=== PATIENT | female | born 1940 | race Caucasian/White ===

== ENCOUNTER 2021-02-21 15:01 | Observation (INO) | payer MEDICARE ==
[~2021-02-21] VITALS: Ht 160 cm; Wt 75.0 kg
[~2021-02-21 15:01] MED LIST: AGGRENOX 200/251 CAP PO; CELEBREX100 M1 PO; DOXYCYCL HYC100 MG PO; LIPITOR20 M1 PO; LOTENSIN20 M1 PO; TOPROL XL25 M1 PO
--- NOTE | 2021-02-21 15:05 | NUR ---
PT ESCORTED TO ROOM FOR EVAL OF SOB. REFERRAL BY DR HAMLIN OFFICE
[2021-02-21 15:47] LABS: HEMATOCRIT 35.8 % (37.0-47.0); HEMOGLOBIN 12.1 g/dl (12.0-16.0); IMMATURE GRANULOCYTES 0.2 % (0.0-5.0); MEAN CORPUSCULAR HGB 28.5 pG CALC (26.0-32.0); MEAN CORPUSCULAR HGB CONC 33.8 g/dL CAL (32.0-36.0); NEUT# 9.8 thou/uL (2.00-7.15); RED BLOOD COUNT 4.24 mill/uL (4.20-5.60); RED CELL DISTRI WIDTH 15.8 % (11.5-15.5)
[2021-02-21 15:50] LABS: MEAN CELL VOLUME 84.4 fL CALC (80.0-100.0)
[2021-02-21 16:00] LABS: ALBUMIN 4.1 g/dL (3.2-5.0); ALKALINE PHOSPHATASE 108 u/l (38-126); BILIRUBIN, TOTAL 0.4 mg/dL (0.0-1.4); CARBON DIOXIDE 30 mmol/l (22-30); CREATININE 1.2 mg/dL (0.5-1.0); GFR 43 ML/MIN (>=60 (CALC)); GFR FOR AFR.AMER. 52 ML/MIN (>=60 (CALC)); POTASSIUM 3.5 mmol/l (3.5-5.1); SGOT/AST 31 u/l (9-36)
[2021-02-21 16:01] LABS: ANION GAP 12 (6-22 (CALC)); BUN 27 mg/dL (8-23); BUN/CREATININE RATIO 23 (12-20 (CALC)); CHLORIDE 89 mmol/l (95-108); SODIUM 127 mmol/l (137-146)
--- NOTE | 2021-02-21 19:00 | NUR ---
PT AWARE OF PLAN OF CARE; STATES NO FURTHER ASSISTANCE AT THIS TIME
--- NOTE | 2021-02-21 19:37 | NUR ---
REMOVED INFILTRATED IV LINE IN RIGHT AC. PATIENT WASN'T C/O PAIN. MINIMAL SWELLING AT SITE. NEW LINE STARTED LFA.
--- NOTE | 2021-02-21 19:58 | NUR ---
NURSE TO CALL BACK FOR REPORT
--- NOTE | 2021-02-21 20:10 | NUR ---
Admission Note Report Given to: RN RM 272 Transported by: Wheelchair X Stretcher Transported with: X Nurse Transporter X Patent IV O2 X Line Patrolman Location: ICU X MS2
--- NOTE | 2021-02-21 20:18 | NUR ---
PT ARRIVED TO MS2 VIA STRETCHER ACCOMPANIED BY ER NURSE, PT ALERT AND ORIENTED X3, AMBULATED WITH STEADY GAIT TO BED, ORIENTED PT TO ROOM AND CALL LIGHT, DISCUSSED POC, IV TO LFA INITATED IV FLUIDS, PT HAS A SEVERE TRUSS DESIGNER COUGH, MD NOTIFIED AND ROBITUSSIN ORDERED. NO EDEMA, VERY DRY SKIN NOTED TO BLE, REFUSED TEDS. 02 2L NC PLACED AT BEDSIDE FOR PRN USE. NON SKID SOCKS APPLIED. ADMISSION ASSESSMENT COMPLETED, PT VOICES NO NEEDS OR COMPLAINTS AT THIS TIME, CALL LIGHT IN REACH,CONTINUE TO MONITOR.
[2021-02-21 20:20] VITALS: BP 158/79
[2021-02-22 00:09] VITALS: BP 123/58
--- NOTE | 2021-02-22 01:09 | NUR ---
PT RESTING IN BED WITH EYES CLOSED, NO SIGNS OF DISTRESS NOTED, RESP EVEN AND UNLABORED. CALL LIGHT IN REACH,CONTINUE TO MONITOR.
[2021-02-22 04:42] VITALS: BP 132/65
[2021-02-22 05:33] LABS: HEMATOCRIT 31.6 % (37.0-47.0); HEMOGLOBIN 10.9 g/dl (12.0-16.0); MEAN CELL VOLUME 84.5 fL CALC (80.0-100.0); MEAN CORPUSCULAR HGB 29.1 pG CALC (26.0-32.0); MEAN CORPUSCULAR HGB CONC 34.5 g/dL CAL (32.0-36.0); RED BLOOD COUNT 3.74 mill/uL (4.20-5.60); RED CELL DISTRI WIDTH 15.8 % (11.5-15.5)
--- NOTE | 2021-02-22 05:43 | NUR ---
PT RESTING IN BED, NO SIGNS OF DISTRESS NOTED, RESP EVEN AND UNLABORED. PT VOICES NO NEEDS OR COMPLAINTS, MEDICATED PER MAR, CALL LIGHT IN REACH,CONTINUE TO MONITOR.
[2021-02-22 05:44] LABS: ANION GAP 11 (6-22 (CALC)); BUN 28 mg/dL (8-23); BUN/CREATININE RATIO 31 (12-20 (CALC)); CARBON DIOXIDE 25 mmol/l (22-30); CHLORIDE 96 mmol/l (95-108); CREATININE 0.9 mg/dL (0.5-1.0); GFR 60 ML/MIN (>=60 (CALC)); GFR FOR AFR.AMER. > 60 ML/MIN (>=60 (CALC)); MAGNESIUM 1.5 mg/dL (1.6-2.3); POTASSIUM 3.9 mmol/l (3.5-5.1); SODIUM 129 mmol/l (137-146)
[2021-02-22 07:23] VITALS: BP 167/72
--- NOTE | 2021-02-22 08:35 | NUR ---
PT AWAKE, ALERT, ORIENTED X 3. LUNGS WITH WHEEZES HEARD THROUGHOUT, 2 LPM NC. PT ABLE TO EAT BREAKFAST WITH SET UP ASSIST. NAD.
[2021-02-22 11:43] VITALS: BP 156/84
--- NOTE | 2021-02-22 12:13 | NUR ---
PT SEEN BY DR MARTIN, THEN 6 MINUTE WALK TEST DONE BY ORAL MEDRANO. PT'S ARRIVES TO BEDSIDE.
[2021-02-22] MEDS ORDERED: PREDNISONE20 MG PO (12:38)
[2021-02-22] MEDS ORDERED: ZITHROMAX250 MG PO (12:39)
[2021-02-22] MEDS ORDERED: VENTOLIN HFA108 MCG IN (12:39)
[2021-02-22] MEDS ORDERED: TESSALON PERLE100 MG PO (12:40)
--- NOTE | 2021-02-22 14:01 | NUR ---
PT VERBALIZED UNDERSTANDING OF DC INSTRUCTIONS, WAITS FOR HOME OXYGEN TO BE DELIVERED TO HOSPITAL. PT'S HAS BEEN AT BEDSIDE, SUPPORTIVE.
== END 2021-02-22 15:30 | disposition home health service (06) ==
LOC: ED 15:01 → ED-I 17:00 → ED 17:41 → MS2 17:42
PROVIDERS: Family Medicine; ADMIT Hospitalist; ATTEND Hospitalist
DX: J20.8 Acute bronchitis due to other specified organisms (principal); E87.1 Hypo-osmolality and hyponatremia; N17.9 Acute kidney failure, unspecified; E83.42 Hypomagnesemia; R09.02 Hypoxemia; I11.0 Hypertensive heart disease with heart failure; I50.9 Heart failure, unspecified; E78.5 Hyperlipidemia, unspecified; Z20.822 Contact with and (suspected) exposure to COVID-19
CPT/HCPCS: G0378; J3475

== ENCOUNTER 2021-03-01 16:13 | Observation (INO) | payer MEDICARE ==
[~2021-03-01] VITALS: Ht 160 cm; Wt 71.7 kg
[~2021-03-01 16:13] MED LIST changes: +PREDNISONE20 MG PO; +TESSALON PERLE100 MG PO; +VENTOLIN HFA108 MCG IN; +ZITHROMAX250 MG PO
--- NOTE | 2021-03-01 16:45 | NUR ---
PT ESCORTED TO ROOM 6 FOR EVALUATION VIA WHEELCHAIR
[2021-03-01 17:28] LABS: HEMATOCRIT 34.5 % (37.0-47.0); HEMOGLOBIN 11.5 g/dl (12.0-16.0); IMMATURE GRANULOCYTES 0.5 % (0.0-5.0); MEAN CELL VOLUME 84.8 fL CALC (80.0-100.0); MEAN CORPUSCULAR HGB 28.3 pG CALC (26.0-32.0); MEAN CORPUSCULAR HGB CONC 33.3 g/dL CAL (32.0-36.0); NEUT# 8.76 thou/uL (2.00-7.15); RED BLOOD COUNT 4.07 mill/uL (4.20-5.60); RED CELL DISTRI WIDTH 15.5 % (11.5-15.5)
[2021-03-01 17:42] LABS: ALBUMIN 3.5 g/dL (3.2-5.0); ALKALINE PHOSPHATASE 92 u/l (38-126); ANION GAP 15 (6-22 (CALC)); BILIRUBIN, TOTAL 0.5 mg/dL (0.0-1.4); BUN 16 mg/dL (8-23); BUN/CREATININE RATIO 22 (12-20 (CALC)); CARBON DIOXIDE 24 mmol/l (22-30); CHLORIDE 90 mmol/l (95-108); CREATININE 0.7 mg/dL (0.5-1.0); GFR > 60 ML/MIN (>=60 (CALC)); GFR FOR AFR.AMER. > 60 ML/MIN (>=60 (CALC)); LIPASE 208 u/l (23-300); POTASSIUM 3.6 mmol/l (3.5-5.1); SGOT/AST 21 u/l (9-36); SODIUM 126 mmol/l (137-146); TOTAL PROTEIN 6.6 g/dL (6.3-8.2)
[2021-03-01 17:49] LABS: MAGNESIUM 0.9 mg/dL (1.6-2.3)
--- NOTE | 2021-03-01 20:16 | NUR ---
REPORT GIVEN TO ANDREY.
[2021-03-01 20:30] VITALS: BP 157/72
--- NOTE | 2021-03-01 20:30 | NUR ---
PT ARRIVED TO THE FLOOR VIA STRETCHER ACCOMPAINED BY ER STAFF. PT ALERT AND ORIENTED X4. AMBULATORY FROM STRETCHER TO BED WITH STEADY GAIT, PT STATES SHE HAS WALKER AT HOME BUT DOESN'T USE IT. SKIN INTACT. PT DENIES ANY PAIN OR DISCOMFORT. IV SITE APPEARS HEALTHY. IV FLUIDS INFUSING WITHOUT DIFFICULTY. IMMIGRATION INVESTIGATOR IN PLACE. PT ORIENTED TO ROOM AND CALL LIGHT SYSTEM. DISCUSSED POC AND SAFETY PRECAUTIONS. PT VERBALIZED UNDERSTANDING. CALL LIGHT WITHIN REACH. WILL CONTINUE TO MONITOR.
[2021-03-01 21:21] LABS: URINE BLOOD DIPSTICK TRACE-INTACT (NEGATIVE); URINE COLOR YELLOW; URINE GLUCOSE - DIPSTICK NEGATIVE (NEGATIVE); URINE KETONE 40 mg/dL (NEGATIVE); URINE PH 6.5 (4.5-8.0); URINE PROTEIN - DIPSTICK TRACE mg/dL (NEG-TRACE); URINE UROBILINOGEN - DIPSTICK 0.2 E.U./dL (0.2)
[2021-03-01 21:22] LABS: URINE BILIRUBIN - DIPSTICK NEGATIVE (NEGATIVE); URINE LEUK ESTERASE MODERATE (NEGATIVE); URINE NITRITE - DIPSTICK NEGATIVE (Negative)
[2021-03-01 21:26] LABS: URINE WBC 20-50 WBC/hpf (0-5)
[2021-03-01 21:27] LABS: URINE BACTERIA MODERATE hpf; URINE SQUAMOUS EPITHELIAL CELL MODERATE EPI/hpf (0-FEW)
[2021-03-02] VITALS: BP 125/61
--- NOTE | 2021-03-02 00:01 | NUR ---
PT RESTING IN BED WITH EYES CLOSED. NO APPARENT DISTRESS NOTED. RESPIRATIONS EVEN AND UNLABORED. PT WAKES EASILY. CHANNEL LIP WETTER IN PLACE. IVF INFUSING WITHOUT DIFFICULTY. VSS. CALL LIGHT WITHIN REACH. WILL CONTINUE TO MONITOR.
[2021-03-02 04:00] VITALS: BP 121/61
--- NOTE | 2021-03-02 04:26 | NUR ---
pt incontinent of scant amount of stool; carmella care provided; pt does not voice any complaints or concerns; ivf infusing without difficulty; call mcgregor within reach; will continue to monitor.
[2021-03-02 07:12] LABS: HEMATOCRIT 31.8 % (37.0-47.0); HEMOGLOBIN 10.8 g/dl (12.0-16.0); IMMATURE GRANULOCYTES 0.3 % (0.0-5.0); MEAN CELL VOLUME 85.3 fL CALC (80.0-100.0); NEUT# 6.59 thou/uL (2.00-7.15); RED BLOOD COUNT 3.73 mill/uL (4.20-5.60); RED CELL DISTRI WIDTH 15.7 % (11.5-15.5)
[2021-03-02 07:30] LABS: ALBUMIN 3.2 g/dL (3.2-5.0); ALKALINE PHOSPHATASE 92 u/l (38-126); ANION GAP 12 (6-22 (CALC)); BILIRUBIN, TOTAL 0.5 mg/dL (0.0-1.4); BUN 13 mg/dL (8-23); BUN/CREATININE RATIO 18 (12-20 (CALC)); CARBON DIOXIDE 24 mmol/l (22-30); CHLORIDE 93 mmol/l (95-108); CREATININE 0.7 mg/dL (0.5-1.0); GFR > 60 ML/MIN (>=60 (CALC)); GFR FOR AFR.AMER. > 60 ML/MIN (>=60 (CALC)); POTASSIUM 3.6 mmol/l (3.5-5.1); SGOT/AST 19 u/l (9-36); SODIUM 126 mmol/l (137-146)
--- NOTE | 2021-03-02 08:00 | NUR ---
RAMEZ RECEIVED FROM FREDRICK SUAZO. PT RESTING PEACEFULLY. VSS. DENIES PAIN OR CONCERNS. C/O FREQUENT BM SPECIMEN OBTAINED STOOL SENT TO THE LAB.
[2021-03-02 09:06] VITALS: BP 146/68
--- NOTE | 2021-03-02 09:16 | NUR ---
CALLED AND SPOKE WITH PTS DAUGHTER TO COMPLETE MED REC. STATES MOM TAKES 4 MEDS IN AM AND 2 HS BUT DOESNT KNOW NAMES/STRENGTHS. SHE STATES HER FATHER WILL BE COMING TO HOSPITAL TODAY AND WILL HAVE HIM BRING A LIST OF HOME MEDS
[2021-03-02 10:21] VITALS: BP 145/66
[2021-03-02 14:34] VITALS: BP 140/66
--- NOTE | 2021-03-02 19:25 | NUR ---
1900-REPORT RECEIVED FROM [facility] NURSE VIA SBAR FORMAT. FOUND PATIENT STABLE, C/O FREQUENT BOUTS OF WATERY DIARRHEA, BED IS WET D/T STOOL INCONTINENCE, WILL PROVIDE PERINEAL CARE. CALLED LENS MARKER FOR ASSISTANCE.
[2021-03-02 20:00] VITALS: BP 159/63
--- NOTE | 2021-03-02 20:55 | NUR ---
MEDICATED WITH PM MEDS, PATIENT DENIES ANY NEEDS TO USE THE BSC, ENCOURAGED TO CALL IF NEEDED, CALL FELDMAN AT REACH, TELE IN PLACE, SR PER ER MONITORING, NO PAIN REPORTED, WILL FOLLOW UP WITH HOURLY ROUNDINGS.
[2021-03-03] VITALS: BP 131/62
--- NOTE | 2021-03-03 00:42 | NUR ---
PATIENT IS RESTING IN BED, DENIES PAIN OR NEEDS, STATES IS DRY AND CLEAN AT THIS TIME, NO BM NOTED, WILL MONITOR CLOSELY, CALL FELDMAN AT REACH.
[2021-03-03 04:00] VITALS: BP 152/65
--- NOTE | 2021-03-03 04:37 | NUR ---
PATIENT IS RESTING IN BED, AWAKE, NO BM'S REPORTED SINCE LAST NIGHT, VOIDS IN BEDPAN, INCONTINENT OF URINE, PERICARE PERICARE PROVIED, NO S/S OF DISTRESS, RESP ARE EVEN AND UNLABORED, WILL FOLLOW UP CLOSELY.
[2021-03-03 05:45] LABS: MEAN CELL VOLUME 86.1 fL CALC (80.0-100.0); MEAN CORPUSCULAR HGB 29.7 pG CALC (26.0-32.0); MEAN CORPUSCULAR HGB CONC 34.5 g/dL CAL (32.0-36.0); RED BLOOD COUNT 3.37 mill/uL (4.20-5.60); RED CELL DISTRI WIDTH 15.7 % (11.5-15.5)
[2021-03-03 06:02] LABS: ANION GAP 11 (6-22 (CALC)); BUN 6 mg/dL (8-23); BUN/CREATININE RATIO 9 (12-20 (CALC)); CARBON DIOXIDE 24 mmol/l (22-30); CHLORIDE 96 mmol/l (95-108); CREATININE 0.7 mg/dL (0.5-1.0); GFR > 60 ML/MIN (>=60 (CALC)); GFR FOR AFR.AMER. > 60 ML/MIN (>=60 (CALC)); POTASSIUM 3.2 mmol/l (3.5-5.1); SODIUM 128 mmol/l (137-146)
[2021-03-03 06:05] LABS: MAGNESIUM 1.6 mg/dL (1.6-2.3)
[2021-03-03 07:30] VITALS: BP 148/63
--- NOTE | 2021-03-03 07:30 | NUR ---
PATIENT RESTING IN BED AT THIS TIME. SIDERAILS ARE UP X2 CALL LIGHT IS WIHTIN REACH. PATIENT ALERT AND ORIENTED X 3 WOOD CLUB NECK WHIPPER DONE AT THIS TIME SEE INTERVENTIONS. NEURO CHECKS REMAIN UNCHANGED AND NEGATIVE FOR DEFICITS. TELE MONITOR IN PLACE AND WILL CONTINUE TO MONITOR.
--- NOTE | 2021-03-03 08:25 | NUR ---
PRELIM BLOOD CX SHOWS GRAM POSITIVE COCCI IN 2 AEROBIC BOTTLES. REPORTED TO JOÃO. NO NEW ORDERS, WILL F/U WITH FINALS.
[2021-03-03 10:30] VITALS: BP 169/62
--- NOTE | 2021-03-03 12:10 | NUR ---
PATIENT SITTING UP IN BED AT THIS TIME WITH AT BEDSIDE. PATIENT DEINES ANY NEEDS AND OR PAIN. IV REMOVED AT THIS TIME FOR LEAKING. SIDERAILS ARE UP CALL LIGHT WITHIN REACH. SIDERAILS ARE UP CALL LIGHT WITHIN REACH. TELE MONITOR ON AND BEING MONITORED BY ED.
[2021-03-03 15:26] VITALS: BP 158/63
--- NOTE | 2021-03-03 19:00 | NUR ---
REPORT REC FROM Jese EPPS RN
--- NOTE | 2021-03-03 19:15 | NUR ---
PT IN BED A&O X4. RIGHT AND LEFT UPPER LOBES CLEAR, LOWER LOBES DIMINISHED. UNLABORED RESPIRATIONS. HEART SOUNDS AND HEART RHYTHM NORMAL. BOWEL SOUNDS ACTIVE X4 QUADRANTS. PT C/O LOWER BACK PAIN 09/25, GAVE MEDICATION. CALL LIGHT WITHIN REACH.
[2021-03-03 21:08] VITALS: BP 160/66
--- NOTE | 2021-03-04 00:54 | NUR ---
UPON ENTERING ROOM PT REPORTS EPISODE OF BOWEL INCONTINENCE. THIS TRIMMING DEPARTMENT BLOCKER AND Pollo YUEN RN AT BEDSIDE; PARTIAL BED BATH GIVEN; PERICARE PROVIDED; X2 MODERATE WATERY BMS NOTED. BARRIER CREAM APPLIED DUE TO REDNESS ON BUTTOCKS. PT EMOTIONAL REGARDING INCONTINENCE EPISODE; REPORTS "IMAGINE IF I WOULD'VE BEEN HOME MY WOULDN'T BE ABLE TO DO THIS" PT AGREEABLE TO REHAB. CALL LIGHT WITHIN REACH.
--- NOTE | 2021-03-04 04:09 | NUR ---
PT HELPED TO BEDPAN. PT DENIES ANY PAIN UPON URINATION. PT WENT BACK TO SLEEP. CALL LIGHT WITHIN REACH.
[2021-03-04 04:15] VITALS: BP 170/89
[2021-03-04 05:30] LABS: HEMATOCRIT 28.5 % (37.0-47.0); HEMOGLOBIN 9.6 g/dl (12.0-16.0); MEAN CELL VOLUME 86.1 fL CALC (80.0-100.0); MEAN CORPUSCULAR HGB CONC 33.7 g/dL CAL (32.0-36.0); RED BLOOD COUNT 3.31 mill/uL (4.20-5.60); RED CELL DISTRI WIDTH 16.2 % (11.5-15.5)
[2021-03-04 05:40] LABS: ANION GAP 10 (6-22 (CALC)); BUN 5 mg/dL (8-23); BUN/CREATININE RATIO 9 (12-20 (CALC)); CARBON DIOXIDE 25 mmol/l (22-30); CHLORIDE 99 mmol/l (95-108); CREATININE 0.5 mg/dL (0.5-1.0); GFR > 60 ML/MIN (>=60 (CALC)); GFR FOR AFR.AMER. > 60 ML/MIN (>=60 (CALC)); MAGNESIUM 1.6 mg/dL (1.6-2.3); POTASSIUM 3.3 mmol/l (3.5-5.1); SODIUM 129 mmol/l (137-146)
--- NOTE | 2021-03-04 07:02 | NUR ---
PT SLEEPING IN BED. NO STRESS NOTED. CALL LIGHT WITHIN REACH.
--- NOTE | 2021-03-04 08:00 | NUR ---
ASSESSMENT AND VITALS ALLOWED AT THIS TIME. LUNG SOUNDS CLEAR RUL AND JUAN JOSE= ANTERIOR AND POSTERIOR. LLL AND RLLL DIMINISHED/CLEAR ANTERIOR AND POSTERIOR. HEART SOUNDS REGULAR, TELE MONITOR IN PLACE, CNTINOUS MONOTORING BY ED. BOWEL SOUNDS ACTIVE X4. RADIAL AND PEDAL STRONG. IV 22G LFA INFUSING NS PER EMAR ORDER. FLUSHED WITH NO RESISTANCE. FALL/SAFTEY PRECAUTIONS IN PLACE. STATES NO OTHER NEEDS AT THIS TIME. CALL LIGHT WITHIN REACH.
[2021-03-04 11:00] VITALS: BP 169/76
--- NOTE | 2021-03-04 11:10 | NUR ---
S- pt c/o being weak. 0- Pt resting in bed with nursing present. Pt rolled side to side with min assist and use of bed rail. Pt unable to move self up in bed. Supine to sit with min/mod assist of upper body. Pt transferred to BS chair with min assist, min/mod assist to stand from chair, then ambulated with RW to commode with min assist. She was only able to walk several steps with walker due to fatigue. Posture was very flexed and small shuffled steps. Sitting ex performed x 10 reps each. Gentle heel cord stretch done bilaterally by therapist. BP 161/63 to 165/68, HR 93-95, 02 sats 95-96%. Pt was left in recliner, legs elevated, call mcgregor and tray in reach. Time spent with pt 50 min. A- Pt with general weakness and decrease balance. [facility] P- Will follow per POC.
--- NOTE | 2021-03-04 12:00 | NUR ---
PT WITH FAMILY MEMBER. STATES NO PIN AT THIS TIME. CALL LIGHT WITHIN REACH. NEW IV SITE LOCATED ON LAC 22G. FALL/SAFTEY PRECAUTIONS IN PLACE. CALL LIGHT WITHIN REACH
[2021-03-04] MEDS ORDERED: KEFLEX500 MG PO (14:27)
[2021-03-04] MEDS ORDERED: FLORASTOR250 M1 PO (14:28)
[2021-03-04 15:00] VITALS: BP 188/94
--- NOTE | 2021-03-04 16:24 | NUR ---
Discharge instructions given. Patient verbalizes understanding of same. Discharged in stable condition via Wheelchair to Home with staff. All belongings sent with pt. IV REMOVED CATHETER INTACT
== END 2021-03-04 16:24 ==
LOC: ED 16:13 → ED-I 17:26 → ED 17:26 → ED-I 18:30 → ED 18:52 → MS2 18:53
PROVIDERS: Nurse Practitioner; ADMIT Internal Medicine; ATTEND Internal Medicine
DX: E86.0 Dehydration (principal); E87.1 Hypo-osmolality and hyponatremia; E83.42 Hypomagnesemia; N39.0 Urinary tract infection, site not specified; R78.81 Bacteremia; I11.0 Hypertensive heart disease with heart failure; I50.9 Heart failure, unspecified; Z87.01 Personal history of pneumonia (recurrent); Z66 Do not resuscitate; Z20.822 Contact with and (suspected) exposure to COVID-19
CPT/HCPCS: J1650; J3475

== ENCOUNTER 2021-04-19 11:20 | Inpatient (IN) | payer MEDICARE ==
[~2021-04-19] VITALS: Ht 160 cm; Wt 68.0 kg
[~2021-04-19 11:20] MED LIST changes: +FLORASTOR250 M1 PO; +KEFLEX500 MG PO
[2021-04-19 11:56] LABS: HEMATOCRIT 28.1 % (37.0-47.0); HEMOGLOBIN 9.5 g/dl (12.0-16.0); IMMATURE GRANULOCYTES 0.3 % (0.0-5.0); MEAN CORPUSCULAR HGB 29.4 pG CALC (26.0-32.0); MEAN CORPUSCULAR HGB CONC 33.8 g/dL CAL (32.0-36.0); NEUT# 11.89 thou/uL (2.00-7.15); RED BLOOD COUNT 3.23 mill/uL (4.20-5.60); RED CELL DISTRI WIDTH 14.5 % (11.5-15.5)
[2021-04-19 12:12] LABS: URINE BLOOD DIPSTICK NEGATIVE (NEGATIVE); URINE COLOR YELLOW; URINE GLUCOSE - DIPSTICK NEGATIVE (NEGATIVE); URINE KETONE 40 mg/dL (NEGATIVE); URINE LEUK ESTERASE NEGATIVE (NEGATIVE); URINE PROTEIN - DIPSTICK 30 mg/dL (NEG-TRACE); URINE SPECIFIC GRAVITY 1.025; URINE UROBILINOGEN - DIPSTICK 0.2 E.U./dL (0.2)
[2021-04-19 12:17] LABS: ALKALINE PHOSPHATASE 79 u/l (38-126); BILIRUBIN, TOTAL 0.7 mg/dL (0.0-1.4); BUN 9 mg/dL (8-23); BUN/CREATININE RATIO 15 (12-20 (CALC)); CHLORIDE 96 mmol/l (95-108); CREATININE 0.6 mg/dL (0.5-1.0); GFR > 60 ML/MIN (>=60 (CALC)); GFR FOR AFR.AMER. > 60 ML/MIN (>=60 (CALC)); SGOT/AST 18 u/l (9-36); SODIUM 128 mmol/l (137-146); TOTAL PROTEIN 6.1 g/dL (6.3-8.2)
[2021-04-19 12:18] LABS: ANION GAP 17 (6-22 (CALC)); CARBON DIOXIDE 19 mmol/l (22-30)
[2021-04-19 12:21] LABS: URINE BILIRUBIN - DIPSTICK NEGATIVE (NEGATIVE); URINE NITRITE - DIPSTICK NEGATIVE (Negative)
[2021-04-19 12:26] LABS: URINE RBC 0-2 RBC/hpf (0-5)
[2021-04-19 12:28] LABS: URINE COARSE GRANULAR CAST FEW lpf; URINE TRANSITIONAL EPI. CELLS FEW hpf
[2021-04-19 13:30] VITALS: BP 136/75
[2021-04-19 13:45] VITALS: BP 143/68
[2021-04-19 14:00] VITALS: BP 128/69
[2021-04-19 19:31] VITALS: BP 155/69
[2021-04-20] VITALS (9 sets, daily range): BP systolic 127–169; BP diastolic 48–73
[2021-04-20 05:17] LABS: HEMATOCRIT 23.3 % (37.0-47.0); HEMOGLOBIN 7.7 g/dl (12.0-16.0); MEAN CELL VOLUME 88.3 fL CALC (80.0-100.0); MEAN CORPUSCULAR HGB 29.2 pG CALC (26.0-32.0); RED BLOOD COUNT 2.64 mill/uL (4.20-5.60); RED CELL DISTRI WIDTH 14.7 % (11.5-15.5)
[2021-04-20 05:37] LABS: BUN 8 mg/dL (8-23); BUN/CREATININE RATIO 13 (12-20 (CALC)); CARBON DIOXIDE 20 mmol/l (22-30); CHLORIDE 100 mmol/l (95-108); CREATININE 0.6 mg/dL (0.5-1.0); GFR > 60 ML/MIN (>=60 (CALC)); GFR FOR AFR.AMER. > 60 ML/MIN (>=60 (CALC)); SODIUM 128 mmol/l (137-146)
[2021-04-20 05:39] LABS: ANION GAP 11 (6-22 (CALC)); POTASSIUM 3.3 mmol/l (3.5-5.1)
[2021-04-21] VITALS: BP 142/53
[2021-04-21 03:54] VITALS: BP 138/57
[2021-04-21 05:13] LABS: BASO% 1 % (0-3); EOS% 3 % (0-8); HEMATOCRIT 22.2 % (37.0-47.0); HEMOGLOBIN 7.7 g/dl (12.0-16.0); IMMATURE GRANULOCYTES 0.5 % (0.0-5.0); LYMPH% 14 % (15-41); MEAN CELL VOLUME 87.7 fL CALC (80.0-100.0); MEAN CORPUSCULAR HGB 30.4 pG CALC (26.0-32.0); MEAN CORPUSCULAR HGB CONC 34.7 g/dL CAL (32.0-36.0); MONO% 11 % (2-13); NEUT# 4.62 thou/uL (2.00-7.15); NEUT% 72 % (42-76); PLATELET COUNT 313 thou/uL (130-400); RED BLOOD COUNT 2.53 mill/uL (4.20-5.60); RED CELL DISTRI WIDTH 14.8 % (11.5-15.5)
[2021-04-21 05:36] LABS: ALKALINE PHOSPHATASE 72 u/l (38-126); ANION GAP 10 (6-22 (CALC)); BUN 7 mg/dL (8-23); BUN/CREATININE RATIO 13 (12-20 (CALC)); CARBON DIOXIDE 20 mmol/l (22-30); CHLORIDE 101 mmol/l (95-108); CREATININE 0.6 mg/dL (0.5-1.0); GFR > 60 ML/MIN (>=60 (CALC)); GFR FOR AFR.AMER. > 60 ML/MIN (>=60 (CALC)); POTASSIUM 3.1 mmol/l (3.5-5.1); SGOT/AST 18 u/l (9-36); SODIUM 128 mmol/l (137-146)
[2021-04-21 05:56] LABS: ALBUMIN 2.2 g/dL (3.2-5.0); BILIRUBIN, TOTAL 0.2 mg/dL (0.0-1.4); TOTAL PROTEIN 4.7 g/dL (6.3-8.2)
[2021-04-21 06:28] LABS: C-REACTIVE PROTEIN 31.7 mg/dL (0-0.9)
[2021-04-21 08:10] VITALS: BP 131/83
[2021-04-21 10:45] VITALS: BP 163/79
[2021-04-21 14:01] VITALS: BP 128/55
[2021-04-21 19:18] VITALS: BP 145/60
[2021-04-22] VITALS (10 sets, daily range): BP systolic 113–168; BP diastolic 54–80
[2021-04-22 05:28] LABS: HEMATOCRIT 21.3 % (37.0-47.0); HEMOGLOBIN 7.1 g/dl (12.0-16.0); MEAN CELL VOLUME 87.7 fL CALC (80.0-100.0); MEAN CORPUSCULAR HGB 29.2 pG CALC (26.0-32.0); MEAN CORPUSCULAR HGB CONC 33.3 g/dL CAL (32.0-36.0); RED BLOOD COUNT 2.43 mill/uL (4.20-5.60); RED CELL DISTRI WIDTH 14.7 % (11.5-15.5)
[2021-04-22 05:56] LABS: ANION GAP 11 (6-22 (CALC)); BUN 5 mg/dL (8-23); BUN/CREATININE RATIO 10 (12-20 (CALC)); CARBON DIOXIDE 20 mmol/l (22-30); CHLORIDE 101 mmol/l (95-108); CREATININE 0.5 mg/dL (0.5-1.0); GFR > 60 ML/MIN (>=60 (CALC)); GFR FOR AFR.AMER. > 60 ML/MIN (>=60 (CALC)); MAGNESIUM 1.5 mg/dL (1.6-2.3); POTASSIUM 3.7 mmol/l (3.5-5.1); SODIUM 128 mmol/l (137-146)
[2021-04-22] MEDS ORDERED: BENAZEPRIL40 M1 PO (10:01)
[2021-04-22] MEDS ORDERED: LIPITOR20 M1 PO (10:01)
[2021-04-22] MEDS ORDERED: CLOPIDOGREL75 MG PO (10:02)
[2021-04-22] MEDS ORDERED: METOPROLOL SUCC50 MG PO (10:03)
[2021-04-22] MEDS ORDERED: NORVASC5 M1 PO (10:04)
[2021-04-22] MEDS ORDERED: TRAZODONE50 MG PO (10:04)
[2021-04-22] MEDS ORDERED: HYDROCHLOROTH12.5 M1 PO (10:05)
[2021-04-22] MEDS ORDERED: ONDANSETRON ODT8 MG PO (10:07)
[2021-04-22] MEDS ORDERED: ALENDRONATE SOD70 MG PO (10:08)
[2021-04-22] MEDS ORDERED: ZYRTEC ALLGY10 M1 PO (10:10)
[2021-04-23] VITALS (7 sets, daily range): BP systolic 138–178; BP diastolic 57–92
[2021-04-23 06:40] LABS: MEAN CELL VOLUME 86.5 fL CALC (80.0-100.0); MEAN CORPUSCULAR HGB 29.5 pG CALC (26.0-32.0); MEAN CORPUSCULAR HGB CONC 34.2 g/dL CAL (32.0-36.0); RED BLOOD COUNT 3.25 mill/uL (4.20-5.60); RED CELL DISTRI WIDTH 14.7 % (11.5-15.5)
[2021-04-23 06:42] LABS: HEMATOCRIT 28.1 % (37.0-47.0); HEMOGLOBIN 9.6 g/dl (12.0-16.0)
[2021-04-23 07:15] LABS: ALBUMIN 2.6 g/dL (3.2-5.0); ALKALINE PHOSPHATASE 78 u/l (38-126); ANION GAP 15 (6-22 (CALC)); BUN 7 mg/dL (8-23); BUN/CREATININE RATIO 11 (12-20 (CALC)); CARBON DIOXIDE 22 mmol/l (22-30); CHLORIDE 95 mmol/l (95-108); CREATININE 0.6 mg/dL (0.5-1.0); GFR > 60 ML/MIN (>=60 (CALC)); GFR FOR AFR.AMER. > 60 ML/MIN (>=60 (CALC)); MAGNESIUM 1.3 mg/dL (1.6-2.3); POTASSIUM 4.1 mmol/l (3.5-5.1); SGOT/AST 22 u/l (9-36); SODIUM 128 mmol/l (137-146); TOTAL PROTEIN 5.3 g/dL (6.3-8.2)
[2021-04-23 07:36] LABS: BILIRUBIN, TOTAL 0.7 mg/dL (0.0-1.4)
[2021-04-24] VITALS: BP 148/67
[2021-04-24 04:00] VITALS: BP 119/68
[2021-04-24 06:21] LABS: HEMATOCRIT 27.5 % (37.0-47.0); HEMOGLOBIN 9.5 g/dl (12.0-16.0); MEAN CELL VOLUME 86.2 fL CALC (80.0-100.0); MEAN CORPUSCULAR HGB 29.8 pG CALC (26.0-32.0); MEAN CORPUSCULAR HGB CONC 34.5 g/dL CAL (32.0-36.0); RED BLOOD COUNT 3.19 mill/uL (4.20-5.60); RED CELL DISTRI WIDTH 14.3 % (11.5-15.5)
[2021-04-24 06:34] LABS: ANION GAP 12 (6-22 (CALC)); BUN 5 mg/dL (8-23); BUN/CREATININE RATIO 9 (12-20 (CALC)); CARBON DIOXIDE 25 mmol/l (22-30); CHLORIDE 96 mmol/l (95-108); CREATININE 0.5 mg/dL (0.5-1.0); GFR > 60 ML/MIN (>=60 (CALC)); GFR FOR AFR.AMER. > 60 ML/MIN (>=60 (CALC)); MAGNESIUM 1.5 mg/dL (1.6-2.3); POTASSIUM 3.8 mmol/l (3.5-5.1); SODIUM 130 mmol/l (137-146)
[2021-04-24 07:33] VITALS: BP 165/73
[2021-04-24 11:11] VITALS: BP 156/73
[2021-04-24] MEDS ORDERED: PREDNISONE10 MG PO (13:37)
[2021-04-24] MEDS ORDERED: CEPHALEXIN500 MG PO (13:37)
[2021-04-24] MEDS ORDERED: [UNRECOGNIZED DRUG - OTHER] PO (13:44)
== END 2021-04-24 16:00 | DRG 872 ==
LOC: ED 11:20 → ED-I 11:46 → ED 17:16 → MS2 17:17
PROVIDERS: Family Medicine; Nurse Practitioner; ADMIT Hospitalist; ATTEND Internal Medicine
PROC: 0T9B70Z Drainage of Bladder with Drainage Device, Via Natural or Artificial Opening (ICD-10-PCS; principal; 2021-04-19)
PROC: 30233N1 Transfusion of Nonautologous Red Blood Cells into Peripheral Vein, Percutaneous Approach (ICD-10-PCS; 2021-04-22)
DX: A41.9 Sepsis, unspecified organism (principal); E87.1 Hypo-osmolality and hyponatremia; E86.0 Dehydration; E87.6 Hypokalemia; E83.42 Hypomagnesemia; M35.3 Polymyalgia rheumatica; I11.0 Hypertensive heart disease with heart failure; I50.9 Heart failure, unspecified; D64.9 Anemia, unspecified; M06.9 Rheumatoid arthritis, unspecified; F03.90 Unspecified dementia, unspecified severity, without behavioral disturbance, psychotic disturbance, mood disturbance, and anxiety; E78.5 Hyperlipidemia, unspecified; Z87.01 Personal history of pneumonia (recurrent); Z20.822 Contact with and (suspected) exposure to COVID-19
CPT/HCPCS: A9579; G0378; J1650; J1756; J2060; J3475; P9016; Q3014; Q9967

== ENCOUNTER 2021-05-20 04:24 | Inpatient (IN) | payer MEDICARE ==
[~2021-05-20] VITALS: Ht 160 cm; Wt 72.0 kg
[2021-05-20] VITALS (21 sets, daily range): BP systolic 109–153; BP diastolic 49–91
[~2021-05-20 04:24] MED LIST changes: +ALENDRONATE SOD70 MG PO; +BENAZEPRIL20 M1 PO; +CEPHALEXIN500 MG PO; +CLOPIDOGREL75 MG PO; +HYDROCHLOROTH12.5 M1 PO; +METOPROLOL SUCC50 MG PO; +NORVASC5 M1 PO; +ONDANSETRON ODT8 MG PO; +PREDNISONE10 MG PO; +TRAZODONE50 MG PO; +ZYRTEC ALLGY10 M1 PO; +[UNRECOGNIZED DRUG - OTHER] PO
[2021-05-20] MEDS ORDERED: MIRTAZAPINE15 MG PO (05:27)
[2021-05-20] MEDS ORDERED: LASIX 20 MG TAB20 MG PO (05:28)
[2021-05-20 05:45] LABS: IMMATURE GRANULOCYTES 0.8 % (0.0-5.0); MEAN CELL VOLUME 89.4 fL CALC (80.0-100.0); MEAN CORPUSCULAR HGB 29.4 pG CALC (26.0-32.0); MEAN CORPUSCULAR HGB CONC 32.9 g/dL CAL (32.0-36.0); NEUT# 11.05 thou/uL (2.00-7.15); RED BLOOD COUNT 4.42 mill/uL (4.20-5.60); RED CELL DISTRI WIDTH 15.2 % (11.5-15.5)
[2021-05-20 05:46] LABS: HEMATOCRIT 39.5 % (37.0-47.0)
[2021-05-20 05:47] LABS: ALKALINE PHOSPHATASE 106 u/l (38-126); AMYLASE 100 u/l (30-110); BILIRUBIN, TOTAL 0.5 mg/dL (0.0-1.4); BUN 15 mg/dL (8-23); BUN/CREATININE RATIO 17 (12-20 (CALC)); CARBON DIOXIDE 28 mmol/l (22-30); CHLORIDE 94 mmol/l (95-108); CREATININE 0.8 mg/dL (0.5-1.0); GFR > 60 ML/MIN (>=60 (CALC)); GFR FOR AFR.AMER. > 60 ML/MIN (>=60 (CALC)); LIPASE 177 u/l (23-300); SGOT/AST 26 u/l (9-36); SODIUM 132 mmol/l (137-146)
[2021-05-20 05:48] LABS: ANION GAP 15 (6-22 (CALC)); POTASSIUM 4.6 mmol/l (3.5-5.1); TOTAL PROTEIN 7.4 g/dL (6.3-8.2)
[2021-05-20 05:59] LABS: MYOGLOBIN 26 ng/mL (0 - 62)
[2021-05-20 17:29] LABS: URINE BILIRUBIN - DIPSTICK NEGATIVE (NEGATIVE); URINE BLOOD DIPSTICK MODERATE (NEGATIVE); URINE COLOR YELLOW; URINE GLUCOSE - DIPSTICK NEGATIVE (NEGATIVE); URINE KETONE NEGATIVE (NEGATIVE); URINE LEUK ESTERASE NEGATIVE (NEGATIVE); URINE PH 5.5 (4.5-8.0); URINE PROTEIN - DIPSTICK NEGATIVE (NEG-TRACE); URINE SPECIFIC GRAVITY 1.025; URINE UROBILINOGEN - DIPSTICK 0.2 E.U./dL (0.2)
[2021-05-20 17:34] LABS: URINE NITRITE - DIPSTICK NEGATIVE (Negative)
[2021-05-20 17:42] LABS: URINE SQUAMOUS EPITHELIAL CELL FEW EPI/hpf (0-FEW); URINE WBC 0-2 WBC/hpf (0-5)
[2021-05-21] VITALS (8 sets, daily range): BP systolic 128–143; BP diastolic 56–67
[2021-05-21 05:36] LABS: IMMATURE GRANULOCYTES 0.8 % (0.0-5.0); MEAN CORPUSCULAR HGB 29.5 pG CALC (26.0-32.0); MEAN CORPUSCULAR HGB CONC 31.7 g/dL CAL (32.0-36.0); NEUT# 6.48 thou/uL (2.00-7.15); RED BLOOD COUNT 3.02 mill/uL (4.20-5.60); RED CELL DISTRI WIDTH 15.6 % (11.5-15.5)
[2021-05-21 05:37] LABS: HEMATOCRIT 28.1 % (37.0-47.0); HEMOGLOBIN 8.9 g/dl (12.0-16.0)
[2021-05-21 05:58] LABS: BUN 10 mg/dL (8-23); BUN/CREATININE RATIO 13 (12-20 (CALC)); CHLORIDE 105 mmol/l (95-108); CREATININE 0.7 mg/dL (0.5-1.0); GFR > 60 ML/MIN (>=60 (CALC)); GFR FOR AFR.AMER. > 60 ML/MIN (>=60 (CALC)); MAGNESIUM 1.3 mg/dL (1.6-2.3); POTASSIUM 4.1 mmol/l (3.5-5.1); SODIUM 132 mmol/l (137-146)
[2021-05-21 06:04] LABS: ANION GAP 9 (6-22 (CALC)); CARBON DIOXIDE 22 mmol/l (22-30)
[2021-05-21] MEDS ORDERED: PAIN RELIEF325 MG PO (16:00)
[2021-05-21] MEDS ORDERED: KLOR-CON M1010 MEQ PO (16:01)
[2021-05-21] MEDS ORDERED: DULCOLAX10 MG PR (16:01)
[2021-05-21] MEDS ORDERED: MILK OF MAG30 ML/UDC PO (16:01)
[2021-05-21] MEDS ORDERED: MIRALAX17 GM PO (16:02)
[2021-05-21] MEDS ORDERED: PREDNISONE5 MG PO (16:02)
[2021-05-21] MEDS ORDERED: SOD CHLORIDE1 G2 PO (16:03)
[2021-05-22] VITALS (7 sets, daily range): BP systolic 139–183; BP diastolic 61–78
[2021-05-22 06:03] LABS: HEMATOCRIT 25.8 % (37.0-47.0); HEMOGLOBIN 8.2 g/dl (12.0-16.0); IMMATURE GRANULOCYTES 0.2 % (0.0-5.0); MEAN CELL VOLUME 94.2 fL CALC (80.0-100.0); MEAN CORPUSCULAR HGB 29.9 pG CALC (26.0-32.0); MEAN CORPUSCULAR HGB CONC 31.8 g/dL CAL (32.0-36.0); NEUT# 2.73 thou/uL (2.00-7.15); RED BLOOD COUNT 2.74 mill/uL (4.20-5.60); RED CELL DISTRI WIDTH 15.8 % (11.5-15.5)
[2021-05-22 06:10] LABS: BUN 6 mg/dL (8-23); CREATININE 0.7 mg/dL (0.5-1.0); GFR > 60 ML/MIN (>=60 (CALC)); GFR FOR AFR.AMER. > 60 ML/MIN (>=60 (CALC))
[2021-05-22 06:11] LABS: ALKALINE PHOSPHATASE 63 u/l (38-126); ANION GAP 6 (6-22 (CALC)); BILIRUBIN, TOTAL 0.4 mg/dL (0.0-1.4); BUN/CREATININE RATIO 9 (12-20 (CALC)); CARBON DIOXIDE 23 mmol/l (22-30); CHLORIDE 103 mmol/l (95-108); POTASSIUM 4.3 mmol/l (3.5-5.1); SGOT/AST 17 u/l (9-36); SODIUM 128 mmol/l (137-146)
[2021-05-22 06:13] LABS: ALBUMIN 2.4 g/dL (3.2-5.0); MAGNESIUM 1.9 mg/dL (1.6-2.3)
[2021-05-23 04:24] VITALS: BP 184/71
[2021-05-23 04:30] VITALS: BP 160/70
[2021-05-23 05:46] LABS: HEMATOCRIT 27.3 % (37.0-47.0); HEMOGLOBIN 8.6 g/dl (12.0-16.0); MEAN CELL VOLUME 92.5 fL CALC (80.0-100.0); MEAN CORPUSCULAR HGB 29.2 pG CALC (26.0-32.0); MEAN CORPUSCULAR HGB CONC 31.5 g/dL CAL (32.0-36.0); RED BLOOD COUNT 2.95 mill/uL (4.20-5.60); RED CELL DISTRI WIDTH 15.2 % (11.5-15.5)
[2021-05-23 06:04] LABS: ANION GAP 5 (6-22 (CALC)); BUN 3 mg/dL (8-23); BUN/CREATININE RATIO 5 (12-20 (CALC)); CARBON DIOXIDE 25 mmol/l (22-30); CHLORIDE 101 mmol/l (95-108); CREATININE 0.6 mg/dL (0.5-1.0); GFR > 60 ML/MIN (>=60 (CALC)); GFR FOR AFR.AMER. > 60 ML/MIN (>=60 (CALC)); MAGNESIUM 1.5 mg/dL (1.6-2.3); POTASSIUM 4.5 mmol/l (3.5-5.1); SODIUM 126 mmol/l (137-146)
[2021-05-23 09:01] VITALS: BP 178/80
[2021-05-23 11:07] VITALS: BP 150/54
[2021-05-23 14:15] VITALS: BP 126/56
[2021-05-23 19:05] VITALS: BP 143/59
[2021-05-24] VITALS (7 sets, daily range): BP systolic 140–172; BP diastolic 59–78
[2021-05-24 05:13] LABS: HEMATOCRIT 27.4 % (37.0-47.0); IMMATURE GRANULOCYTES 0.2 % (0.0-5.0); MEAN CELL VOLUME 90.7 fL CALC (80.0-100.0); MEAN CORPUSCULAR HGB 29.8 pG CALC (26.0-32.0); MEAN CORPUSCULAR HGB CONC 32.8 g/dL CAL (32.0-36.0); NEUT# 2.56 thou/uL (2.00-7.15); RED BLOOD COUNT 3.02 mill/uL (4.20-5.60); RED CELL DISTRI WIDTH 15.5 % (11.5-15.5)
[2021-05-24 05:24] LABS: ANION GAP 6 (6-22 (CALC)); BUN < 2 mg/dL (8-23); CARBON DIOXIDE 27 mmol/l (22-30); CHLORIDE 100 mmol/l (95-108); CREATININE 0.6 mg/dL (0.5-1.0); GFR > 60 ML/MIN (>=60 (CALC)); GFR FOR AFR.AMER. > 60 ML/MIN (>=60 (CALC)); MAGNESIUM 1.5 mg/dL (1.6-2.3); SODIUM 129 mmol/l (137-146)
[2021-05-24 05:35] LABS: POTASSIUM 3.5 mmol/l (3.5-5.1)
[2021-05-25] VITALS (8 sets, daily range): BP systolic 123–181; BP diastolic 50–80
[2021-05-25 05:33] LABS: HEMOGLOBIN 8.2 g/dl (12.0-16.0); MEAN CELL VOLUME 89.6 fL CALC (80.0-100.0); MEAN CORPUSCULAR HGB 29.4 pG CALC (26.0-32.0); MEAN CORPUSCULAR HGB CONC 32.8 g/dL CAL (32.0-36.0); RED BLOOD COUNT 2.79 mill/uL (4.20-5.60); RED CELL DISTRI WIDTH 15.7 % (11.5-15.5)
[2021-05-25 05:56] LABS: ANION GAP 8 (6-22 (CALC)); BUN < 2 mg/dL (8-23); CARBON DIOXIDE 26 mmol/l (22-30); CHLORIDE 99 mmol/l (95-108); CREATININE 0.6 mg/dL (0.5-1.0); GFR > 60 ML/MIN (>=60 (CALC)); GFR FOR AFR.AMER. > 60 ML/MIN (>=60 (CALC)); MAGNESIUM 1.3 mg/dL (1.6-2.3); POTASSIUM 2.9 mmol/l (3.5-5.1); SODIUM 130 mmol/l (137-146)
[2021-05-26 04:20] VITALS: BP 143/66
[2021-05-26 05:46] LABS: HEMATOCRIT 25.4 % (37.0-47.0); HEMOGLOBIN 8.4 g/dl (12.0-16.0); MEAN CELL VOLUME 90.7 fL CALC (80.0-100.0); MEAN CORPUSCULAR HGB CONC 33.1 g/dL CAL (32.0-36.0); RED BLOOD COUNT 2.8 mill/uL (4.20-5.60); RED CELL DISTRI WIDTH 15.7 % (11.5-15.5)
[2021-05-26 06:08] LABS: ANION GAP 5 (6-22 (CALC)); BUN < 2 mg/dL (8-23); CARBON DIOXIDE 30 mmol/l (22-30); CHLORIDE 96 mmol/l (95-108); CREATININE 0.6 mg/dL (0.5-1.0); GFR > 60 ML/MIN (>=60 (CALC)); GFR FOR AFR.AMER. > 60 ML/MIN (>=60 (CALC)); MAGNESIUM 1.5 mg/dL (1.6-2.3); POTASSIUM 3.2 mmol/l (3.5-5.1); SODIUM 128 mmol/l (137-146)
[2021-05-26 09:15] VITALS: BP 154/83
[2021-05-26 11:09] VITALS: BP 181/72
[2021-05-26 16:10] VITALS: BP 157/64
[2021-05-26 19:00] VITALS: BP 161/71
[2021-05-27] VITALS (8 sets, daily range): BP systolic 148–181; BP diastolic 56–82
[2021-05-27 05:38] LABS: HEMATOCRIT 24.6 % (37.0-47.0); HEMOGLOBIN 7.9 g/dl (12.0-16.0); MEAN CELL VOLUME 90.4 fL CALC (80.0-100.0); MEAN CORPUSCULAR HGB CONC 32.1 g/dL CAL (32.0-36.0); RED BLOOD COUNT 2.72 mill/uL (4.20-5.60); RED CELL DISTRI WIDTH 15.9 % (11.5-15.5)
[2021-05-27 05:56] LABS: ALBUMIN 2.2 g/dL (3.2-5.0); ALKALINE PHOSPHATASE 64 u/l (38-126); ANION GAP 6 (6-22 (CALC)); BILIRUBIN, TOTAL 0.3 mg/dL (0.0-1.4); BUN < 2 mg/dL (8-23); CARBON DIOXIDE 28 mmol/l (22-30); CHLORIDE 98 mmol/l (95-108); CREATININE 0.5 mg/dL (0.5-1.0); GFR > 60 ML/MIN (>=60 (CALC)); GFR FOR AFR.AMER. > 60 ML/MIN (>=60 (CALC)); MAGNESIUM 1.5 mg/dL (1.6-2.3); SGOT/AST 18 u/l (9-36); SODIUM 129 mmol/l (137-146); TOTAL PROTEIN 4.7 g/dL (6.3-8.2)
[2021-05-28] VITALS (7 sets, daily range): BP systolic 145–180; BP diastolic 58–73
[2021-05-28 05:43] LABS: HEMATOCRIT 27.8 % (37.0-47.0); HEMOGLOBIN 9.1 g/dl (12.0-16.0); MEAN CORPUSCULAR HGB 29.4 pG CALC (26.0-32.0); MEAN CORPUSCULAR HGB CONC 32.7 g/dL CAL (32.0-36.0); RED BLOOD COUNT 3.09 mill/uL (4.20-5.60); RED CELL DISTRI WIDTH 15.8 % (11.5-15.5)
[2021-05-28 06:01] LABS: ANION GAP 9 (6-22 (CALC)); BUN < 2 mg/dL (8-23); CARBON DIOXIDE 26 mmol/l (22-30); CHLORIDE 97 mmol/l (95-108); CREATININE 0.5 mg/dL (0.5-1.0); GFR > 60 ML/MIN (>=60 (CALC)); GFR FOR AFR.AMER. > 60 ML/MIN (>=60 (CALC)); MAGNESIUM 1.6 mg/dL (1.6-2.3); POTASSIUM 3.4 mmol/l (3.5-5.1); SODIUM 129 mmol/l (137-146)
[2021-05-28] MEDS ORDERED: AMLODIPINE BESYL5 MG PO (12:59)
[2021-05-28] MEDS ORDERED: DICYCLOMINE HCL10 MG PO (13:01)
[2021-05-28] MEDS ORDERED: LORTAB 5/3255 MG PO (13:02)
== END 2021-05-28 19:50 | DRG 354 ==
LOC: ED 04:24 → ED-I 06:25 → ED 06:52 → MS2 06:53
PROVIDERS: Emergency Medicine; Nurse Practitioner; Surgery; ADMIT Hospitalist; ATTEND Internal Medicine
PROC: 0WUF0JZ Supplement Abdominal Wall with Synthetic Substitute, Open Approach (ICD-10-PCS; principal; 2021-05-20)
PROC: 05H533Z Insertion of Infusion Device into Right Subclavian Vein, Percutaneous Approach (ICD-10-PCS; 2021-05-20)
DX: K43.0 Incisional hernia with obstruction, without gangrene (principal); E87.1 Hypo-osmolality and hyponatremia; E83.42 Hypomagnesemia; I11.0 Hypertensive heart disease with heart failure; I50.9 Heart failure, unspecified; E78.5 Hyperlipidemia, unspecified; E87.70 Fluid overload, unspecified; E87.6 Hypokalemia; Z20.822 Contact with and (suspected) exposure to COVID-19
CPT/HCPCS: J0131; J1650; J3475; Q9967; S0164

== ENCOUNTER 2021-06-03 13:22 | Emergency (ER) | payer MEDICARE ==
[~2021-06-03] VITALS: Ht 160 cm; Wt 68.0 kg
[2021-06-03] VITALS (14 sets, daily range): BP systolic 137–172; BP diastolic 63–93
[~2021-06-03 13:22] MED LIST changes: +AMLODIPINE BESYL5 MG PO; +DICYCLOMINE HCL10 MG PO; +DULCOLAX10 MG PR; +KLOR-CON M1010 MEQ PO; +LASIX 20 MG TAB20 MG PO; +LORTAB 5/3255 MG PO; +MILK OF MAG30 ML/UDC PO; +MIRALAX17 GM PO; +MIRTAZAPINE15 MG PO; +PAIN RELIEF325 MG PO; +PREDNISONE5 MG PO; +SOD CHLORIDE1 G2 PO
[2021-06-03 14:27] LABS: HEMATOCRIT 28.7 % (37.0-47.0); HEMOGLOBIN 9.2 g/dl (12.0-16.0); IMMATURE GRANULOCYTES 0.5 % (0.0-5.0); MEAN CELL VOLUME 89.4 fL CALC (80.0-100.0); MEAN CORPUSCULAR HGB 28.7 pG CALC (26.0-32.0); MEAN CORPUSCULAR HGB CONC 32.1 g/dL CAL (32.0-36.0); NEUT# 8.67 thou/uL (2.00-7.15); RED BLOOD COUNT 3.21 mill/uL (4.20-5.60); RED CELL DISTRI WIDTH 15.3 % (11.5-15.5)
[2021-06-03 14:37] LABS: INTERNATIONAL NORMALIZED RATIO 1.2 RATIO (0.7-1.3); PROTHROMBIN TIME 12.4 SECONDS (9.0-12.5)
[2021-06-03 14:58] LABS: ALKALINE PHOSPHATASE 120 u/l (38-126); ANION GAP 10 (6-22 (CALC)); BUN 6 mg/dL (8-23); BUN/CREATININE RATIO 12 (12-20 (CALC)); CARBON DIOXIDE 22 mmol/l (22-30); CHLORIDE 98 mmol/l (95-108); CREATININE 0.5 mg/dL (0.5-1.0); GFR > 60 ML/MIN (>=60 (CALC)); GFR FOR AFR.AMER. > 60 ML/MIN (>=60 (CALC)); POTASSIUM 3.9 mmol/l (3.5-5.1); SGOT/AST 39 u/l (9-36); SODIUM 126 mmol/l (137-146); TOTAL PROTEIN 5.5 g/dL (6.3-8.2)
[2021-06-03 15:02] LABS: ALBUMIN 2.7 g/dL (3.2-5.0); BILIRUBIN, TOTAL 0.3 mg/dL (0.0-1.4)
[2021-06-03 15:21] LABS: URINE BILIRUBIN - DIPSTICK NEGATIVE (NEGATIVE); URINE BLOOD DIPSTICK NEGATIVE (NEGATIVE); URINE COLOR YELLOW; URINE GLUCOSE - DIPSTICK NEGATIVE (NEGATIVE); URINE KETONE NEGATIVE (NEGATIVE); URINE LEUK ESTERASE NEGATIVE (NEGATIVE); URINE PROTEIN - DIPSTICK 30 mg/dL (NEG-TRACE); URINE UROBILINOGEN - DIPSTICK 0.2 E.U./dL (0.2)
[2021-06-03 15:22] LABS: URINE NITRITE - DIPSTICK NEGATIVE (Negative)
[2021-06-03 16:03] LABS: URINE RBC 0-2 RBC/hpf (0-5); URINE WBC 0-2 WBC/hpf (0-5)
== END 2021-06-03 18:24 | disposition home or self-care (01) ==
LOC: ED 13:22
PROVIDERS: Nurse Practitioner
DX: R10.9 Unspecified abdominal pain (principal); R00.0 Tachycardia, unspecified; E87.1 Hypo-osmolality and hyponatremia; E83.42 Hypomagnesemia; I11.0 Hypertensive heart disease with heart failure; I50.9 Heart failure, unspecified; E78.5 Hyperlipidemia, unspecified; Z87.01 Personal history of pneumonia (recurrent); Z20.822 Contact with and (suspected) exposure to COVID-19

== ENCOUNTER 2021-07-15 08:44 | Inpatient (IN) | payer MEDICARE ==
[~2021-07-15] VITALS: Ht 160 cm; Wt 70.0 kg
[2021-07-15 10:10] LABS: IMMATURE GRANULOCYTES 0.6 % (0.0-5.0); MEAN CELL VOLUME 91.1 fL CALC (80.0-100.0); MEAN CORPUSCULAR HGB 29.5 pG CALC (26.0-32.0); MEAN CORPUSCULAR HGB CONC 32.3 g/dL CAL (32.0-36.0); NEUT# 11.42 thou/uL (2.00-7.15); RED BLOOD COUNT 4.04 mill/uL (4.20-5.60); RED CELL DISTRI WIDTH 16.2 % (11.5-15.5)
[2021-07-15 10:25] LABS: HEMATOCRIT 36.8 % (37.0-47.0); HEMOGLOBIN 11.9 g/dl (12.0-16.0)
[2021-07-15 10:28] LABS: ALKALINE PHOSPHATASE 88 u/l (38-126); BUN 9 mg/dL (8-23); BUN/CREATININE RATIO 12 (12-20 (CALC)); CARBON DIOXIDE 24 mmol/l (22-30); CHLORIDE 97 mmol/l (95-108); CREATININE 0.7 mg/dL (0.5-1.0); GFR FOR AFR.AMER. > 60 ML/MIN (>=60 (CALC)); GFR OTHER RACES > 60 ML/MIN (>=60 (CALC)); POTASSIUM 3.7 mmol/l (3.5-5.1); SGOT/AST 18 u/l (9-36)
[2021-07-15 10:29] LABS: ALBUMIN 3.6 g/dL (3.2-5.0); ANION GAP 19 (6-22 (CALC)); BILIRUBIN, TOTAL 0.5 mg/dL (0.0-1.4); SODIUM 136 mmol/l (137-146); TOTAL PROTEIN 6.9 g/dL (6.3-8.2)
[2021-07-15 11:40] LABS: URINE BILIRUBIN - DIPSTICK NEGATIVE (NEGATIVE); URINE BLOOD DIPSTICK NEGATIVE (NEGATIVE); URINE COLOR YELLOW; URINE GLUCOSE - DIPSTICK NEGATIVE (NEGATIVE); URINE KETONE NEGATIVE (NEGATIVE); URINE LEUK ESTERASE SMALL (NEGATIVE); URINE NITRITE - DIPSTICK NEGATIVE (Negative); URINE PH 6.5 (4.5-8.0); URINE PROTEIN - DIPSTICK TRACE mg/dL (NEG-TRACE); URINE SPECIFIC GRAVITY 1.025; URINE UROBILINOGEN - DIPSTICK 0.2 E.U./dL (0.2)
[2021-07-15 11:46] LABS: URINE RBC 0-2 RBC/hpf (0-5); URINE SQUAMOUS EPITHELIAL CELL MANY EPI/hpf (0-FEW); URINE TRANSITIONAL EPI. CELLS RARE hpf
[2021-07-15 12:30] VITALS: BP 146/42
[2021-07-15 14:30] VITALS: BP 134/68
[2021-07-15 19:20] VITALS: BP 133/59
[2021-07-16] VITALS (9 sets, daily range): BP systolic 115–238; BP diastolic 55–115
[2021-07-16 06:00] LABS: HEMATOCRIT 33.6 % (37.0-47.0); HEMOGLOBIN 10.8 g/dl (12.0-16.0); MEAN CELL VOLUME 91.8 fL CALC (80.0-100.0); MEAN CORPUSCULAR HGB 29.5 pG CALC (26.0-32.0); MEAN CORPUSCULAR HGB CONC 32.1 g/dL CAL (32.0-36.0); RED BLOOD COUNT 3.66 mill/uL (4.20-5.60); RED CELL DISTRI WIDTH 15.9 % (11.5-15.5)
[2021-07-16 06:16] LABS: BUN 9 mg/dL (8-23); BUN/CREATININE RATIO 14 (12-20 (CALC)); CARBON DIOXIDE 23 mmol/l (22-30); CHLORIDE 99 mmol/l (95-108); CREATININE 0.7 mg/dL (0.5-1.0); GFR FOR AFR.AMER. > 60 ML/MIN (>=60 (CALC)); GFR OTHER RACES > 60 ML/MIN (>=60 (CALC)); MAGNESIUM 1.5 mg/dL (1.6-2.3); SODIUM 130 mmol/l (137-146)
[2021-07-16 06:18] LABS: ANION GAP 12 (6-22 (CALC)); POTASSIUM 3.8 mmol/l (3.5-5.1)
[2021-07-16] MEDS ORDERED: NORVASC10 M1 PO (11:01)
[2021-07-16] MEDS ORDERED: BUSPIRONE5 MG PO (11:02)
[2021-07-16] MEDS ORDERED: MAGNESIUM200 MG PO (11:03)
[2021-07-16] MEDS ORDERED: RAYOS5 MG PO (11:04)
[2021-07-16] MEDS ORDERED: LIPITOR20 MG PO (11:05)
[2021-07-16] MEDS ORDERED: SOD CHLORIDE PO (11:05)
[2021-07-16] MEDS ORDERED: HYDROCHLOROTH12.5 MG PO (11:06)
[2021-07-17] VITALS (7 sets, daily range): BP systolic 94–144; BP diastolic 43–70
[2021-07-17 05:27] LABS: HEMATOCRIT 29.9 % (37.0-47.0); HEMOGLOBIN 9.8 g/dl (12.0-16.0); IMMATURE GRANULOCYTES 0.3 % (0.0-5.0); MEAN CELL VOLUME 90.3 fL CALC (80.0-100.0); MEAN CORPUSCULAR HGB 29.6 pG CALC (26.0-32.0); MEAN CORPUSCULAR HGB CONC 32.8 g/dL CAL (32.0-36.0); NEUT# 6.11 thou/uL (2.00-7.15); RED BLOOD COUNT 3.31 mill/uL (4.20-5.60); RED CELL DISTRI WIDTH 15.2 % (11.5-15.5)
[2021-07-17 05:54] LABS: ALKALINE PHOSPHATASE 71 u/l (38-126); ANION GAP 13 (6-22 (CALC)); BUN 11 mg/dL (8-23); BUN/CREATININE RATIO 18 (12-20 (CALC)); CARBON DIOXIDE 22 mmol/l (22-30); CHLORIDE 103 mmol/l (95-108); CREATININE 0.6 mg/dL (0.5-1.0); GFR FOR AFR.AMER. > 60 ML/MIN (>=60 (CALC)); GFR OTHER RACES > 60 ML/MIN (>=60 (CALC)); POTASSIUM 3.5 mmol/l (3.5-5.1); SGOT/AST 14 u/l (9-36); SODIUM 134 mmol/l (137-146)
[2021-07-17 05:58] LABS: ALBUMIN 2.5 g/dL (3.2-5.0); MAGNESIUM 2.2 mg/dL (1.6-2.3)
[2021-07-18] VITALS (7 sets, daily range): BP systolic 127–157; BP diastolic 52–75
[2021-07-18 05:34] LABS: HEMATOCRIT 28.2 % (37.0-47.0); HEMOGLOBIN 9.1 g/dl (12.0-16.0); IMMATURE GRANULOCYTES 0.3 % (0.0-5.0); MEAN CELL VOLUME 93.4 fL CALC (80.0-100.0); MEAN CORPUSCULAR HGB 30.1 pG CALC (26.0-32.0); MEAN CORPUSCULAR HGB CONC 32.3 g/dL CAL (32.0-36.0); NEUT# 6.52 thou/uL (2.00-7.15); RED BLOOD COUNT 3.02 mill/uL (4.20-5.60); RED CELL DISTRI WIDTH 15.6 % (11.5-15.5)
[2021-07-18 05:53] LABS: ANION GAP 9 (6-22 (CALC)); BUN 12 mg/dL (8-23); BUN/CREATININE RATIO 19 (12-20 (CALC)); CARBON DIOXIDE 24 mmol/l (22-30); CHLORIDE 107 mmol/l (95-108); CREATININE 0.6 mg/dL (0.5-1.0); GFR FOR AFR.AMER. > 60 ML/MIN (>=60 (CALC)); GFR OTHER RACES > 60 ML/MIN (>=60 (CALC)); MAGNESIUM 1.9 mg/dL (1.6-2.3); POTASSIUM 3.6 mmol/l (3.5-5.1); SODIUM 137 mmol/l (137-146)
[2021-07-19] VITALS (7 sets, daily range): BP systolic 149–181; BP diastolic 62–97
[2021-07-19 05:32] LABS: HEMATOCRIT 30.5 % (37.0-47.0); HEMOGLOBIN 9.6 g/dl (12.0-16.0); MEAN CELL VOLUME 93.3 fL CALC (80.0-100.0); MEAN CORPUSCULAR HGB 29.4 pG CALC (26.0-32.0); MEAN CORPUSCULAR HGB CONC 31.5 g/dL CAL (32.0-36.0); RED BLOOD COUNT 3.27 mill/uL (4.20-5.60); RED CELL DISTRI WIDTH 15.8 % (11.5-15.5)
[2021-07-19 05:44] LABS: ANION GAP 9 (6-22 (CALC)); BUN 7 mg/dL (8-23); BUN/CREATININE RATIO 12 (12-20 (CALC)); CARBON DIOXIDE 24 mmol/l (22-30); CHLORIDE 107 mmol/l (95-108); CREATININE 0.7 mg/dL (0.5-1.0); GFR FOR AFR.AMER. > 60 ML/MIN (>=60 (CALC)); GFR OTHER RACES > 60 ML/MIN (>=60 (CALC)); POTASSIUM 3.8 mmol/l (3.5-5.1); SODIUM 136 mmol/l (137-146)
[2021-07-20 00:08] VITALS: BP 174/81
[2021-07-20 05:01] VITALS: BP 181/95
[2021-07-20 05:56] LABS: HEMATOCRIT 30.5 % (37.0-47.0); HEMOGLOBIN 9.7 g/dl (12.0-16.0); MEAN CELL VOLUME 92.7 fL CALC (80.0-100.0); MEAN CORPUSCULAR HGB 29.5 pG CALC (26.0-32.0); MEAN CORPUSCULAR HGB CONC 31.8 g/dL CAL (32.0-36.0); RED BLOOD COUNT 3.29 mill/uL (4.20-5.60); RED CELL DISTRI WIDTH 15.7 % (11.5-15.5)
[2021-07-20 06:10] LABS: ANION GAP 8 (6-22 (CALC)); BUN 7 mg/dL (8-23); BUN/CREATININE RATIO 10 (12-20 (CALC)); CARBON DIOXIDE 28 mmol/l (22-30); CHLORIDE 104 mmol/l (95-108); CREATININE 0.7 mg/dL (0.5-1.0); GFR FOR AFR.AMER. > 60 ML/MIN (>=60 (CALC)); GFR OTHER RACES > 60 ML/MIN (>=60 (CALC)); POTASSIUM 3.7 mmol/l (3.5-5.1); SODIUM 136 mmol/l (137-146)
[2021-07-20 06:25] LABS: MAGNESIUM 1.3 mg/dL (1.6-2.3)
[2021-07-20 06:44] VITALS: BP 183/97
[2021-07-20 10:26] VITALS: BP 165/65
[2021-07-20 10:38] VITALS: BP 165/65
[2021-07-20] MEDS ORDERED: AMOX/K CLAV875 M1 PO (14:16)
[2021-07-20] MEDS ORDERED: PREDNISONE10 MG PO (14:45)
== END 2021-07-20 16:00 | disposition home or self-care (01) | DRG 871 ==
LOC: ED 08:44 → ED-I 10:24 → ED 11:04 → MS2 11:05
PROVIDERS: Family Medicine; Internal Medicine; Nurse Practitioner; ADMIT Hospitalist; ATTEND Internal Medicine
DX: A41.9 Sepsis, unspecified organism (principal); J69.0 Pneumonitis due to inhalation of food and vomit; J15.9 Unspecified bacterial pneumonia; E87.1 Hypo-osmolality and hyponatremia; N39.0 Urinary tract infection, site not specified; I11.0 Hypertensive heart disease with heart failure; I50.9 Heart failure, unspecified; M35.3 Polymyalgia rheumatica; D64.9 Anemia, unspecified; K44.9 Diaphragmatic hernia without obstruction or gangrene; E78.5 Hyperlipidemia, unspecified; E83.42 Hypomagnesemia; L50.0 Allergic urticaria; T36.1X5A Adverse effect of cephalosporins and other beta-lactam antibiotics, initial encounter; B96.1 Klebsiella pneumoniae [K. pneumoniae] as the cause of diseases classified elsewhere; Z79.52 Long term (current) use of systemic steroids; Z87.01 Personal history of pneumonia (recurrent); Z20.822 Contact with and (suspected) exposure to COVID-19
CPT/HCPCS: G0378; J1650; J3475

== ENCOUNTER 2022-01-25 08:36 | Emergency (ER) | payer MEDICARE ==
[~2022-01-25] VITALS: Ht 160 cm; Wt 72.7 kg
[~2022-01-25 08:36] MED LIST changes: +AMOX/K CLAV875 M1 PO; +BUSPIRONE5 MG PO; +HYDROCHLOROTH12.5 MG PO; +LIPITOR20 MG PO; +MAGNESIUM200 MG PO; +NORVASC10 M1 PO; +RAYOS5 MG PO; +SOD CHLORIDE PO
[2022-01-25] MEDS ORDERED: NORVASC5 M1 PO (09:10)
[2022-01-25 09:17] LABS: IMMATURE GRANULOCYTES 0.3 % (0.0-5.0); MEAN CELL VOLUME 89.2 fL CALC (80.0-100.0); MEAN CORPUSCULAR HGB CONC 33.6 g/dL CAL (32.0-36.0); NEUT# 6.57 thou/uL (2.00-7.15); RED BLOOD COUNT 4.27 mill/uL (4.20-5.60); RED CELL DISTRI WIDTH 14.7 % (11.5-15.5)
[2022-01-25 09:22] LABS: HEMATOCRIT 38.1 % (37.0-47.0); HEMOGLOBIN 12.8 g/dl (12.0-16.0)
[2022-01-25 09:30] LABS: ALKALINE PHOSPHATASE 84 u/l (38-126); ANION GAP 15 (6-22 (CALC)); BUN 14 mg/dL (8-23); BUN/CREATININE RATIO 17 (12-20 (CALC)); CARBON DIOXIDE 26 mmol/l (22-30); CHLORIDE 99 mmol/l (95-108); CREATININE 0.8 mg/dL (0.5-1.0); GFR FOR AFR.AMER. > 60 ML/MIN (>=60 (CALC)); GFR OTHER RACES > 60 ML/MIN (>=60 (CALC)); POTASSIUM 4.1 mmol/l (3.5-5.1); SODIUM 136 mmol/l (137-146)
[2022-01-25 09:37] LABS: ALBUMIN 4.1 g/dL (3.2-5.0); BILIRUBIN, TOTAL 0.3 mg/dL (0.0-1.4); SGOT/AST 26 u/l (9-36); TOTAL PROTEIN 7.1 g/dL (6.3-8.2)
[2022-01-25] MEDS ORDERED: PAXLOVID PO (10:18)
[2022-01-25 10:31] VITALS: BP 145/73
[2022-01-25 11:46] VITALS: BP 82/52
== END 2022-01-25 10:32 | disposition home or self-care (01) ==
LOC: ED 08:36
PROVIDERS: Family Medicine
DX: U07.1 COVID-19 (principal); R06.02 Shortness of breath; R05.9 Cough, unspecified; R50.9 Fever, unspecified; R53.83 Other fatigue; I11.0 Hypertensive heart disease with heart failure; I50.9 Heart failure, unspecified; Z87.01 Personal history of pneumonia (recurrent)

== ENCOUNTER 2022-07-05 08:02 | Emergency (ER) | payer MEDICARE ==
[~2022-07-05] VITALS: Ht 160 cm; Wt 85.6 kg
[~2022-07-05 08:02] MED LIST changes: +PAXLOVID PO
[2022-07-05 08:11] VITALS: BP 184/83
[2022-07-05] MEDS ORDERED: ZYRTEC10 MG PO (08:35)
[2022-07-05] MEDS ORDERED: REMERON7.5 MG PO (08:36)
[2022-07-05 08:39] LABS: URINE BILIRUBIN - DIPSTICK NEGATIVE (NEGATIVE); URINE BLOOD DIPSTICK NEGATIVE (NEGATIVE); URINE COLOR YELLOW; URINE GLUCOSE - DIPSTICK NEGATIVE (NEGATIVE); URINE KETONE NEGATIVE (NEGATIVE); URINE LEUK ESTERASE NEGATIVE (NEGATIVE); URINE NITRITE - DIPSTICK NEGATIVE (Negative); URINE PROTEIN - DIPSTICK TRACE mg/dL (NEG-TRACE); URINE SPECIFIC GRAVITY 1.025; URINE UROBILINOGEN - DIPSTICK 0.2 E.U./dL (0.2)
[2022-07-05 08:40] LABS: BASO% 0.9 % (0-3); HEMATOCRIT 37.9 % (37.0-47.0); HEMOGLOBIN 12.1 g/dl (12.0-16.0); IMMATURE GRANULOCYTES 0.5 % (0.0-5.0); LYMPH% 19.3 % (15-41); MEAN CORPUSCULAR HGB 30.7 pG CALC (26.0-32.0); MEAN CORPUSCULAR HGB CONC 31.9 g/dL CAL (32.0-36.0); MONO% 11.9 % (2-13); NEUT# 4.1 thou/uL (2.00-7.15); NEUT% 63.4 % (42-76); RED BLOOD COUNT 3.94 mill/uL (4.20-5.60); RED CELL DISTRI WIDTH 13.8 % (11.5-15.5)
[2022-07-05 08:42] LABS: MEAN CELL VOLUME 96.2 fL CALC (80.0-100.0)
[2022-07-05 08:50] LABS: ALBUMIN 4.3 g/dL (3.2-5.0); ALKALINE PHOSPHATASE 75 u/l (38-126); ANION GAP 14 (6-22 (CALC)); BILIRUBIN, TOTAL 0.3 mg/dL (0.02-1.3); BUN 10 mg/dL (8-23); BUN/CREATININE RATIO 11 (12-20 (CALC)); CARBON DIOXIDE 25 mmol/l (22-30); CHLORIDE 102 mmol/l (95-108); CREATININE 0.9 mg/dL (0.5-1.0); GFR FOR AFR.AMER. > 60 ML/MIN (>=60 (CALC)); GFR OTHER RACES 60 ML/MIN (>=60 (CALC)); POTASSIUM 4.4 mmol/l (3.5-5.1); SGOT/AST 28 u/l (9-36); SODIUM 138 mmol/l (137-146); TOTAL PROTEIN 7.3 g/dL (6.3-8.2)
[2022-07-05 09:01] VITALS: BP 142/65
[2022-07-05 09:31] VITALS: BP 165/73
[2022-07-05] MEDS ORDERED: VOLTAREN1%GEL TOP (09:31)
[2022-07-05] MEDS ORDERED: TRAMADOL HYDROC50 M1 PO (09:31)
[2022-07-05 09:38] VITALS: BP 165/73
== END 2022-07-05 09:57 | disposition home or self-care (01) ==
LOC: ED 08:02
PROVIDERS: Family Medicine
DX: M54.50 Low back pain, unspecified (principal); I11.0 Hypertensive heart disease with heart failure; I50.9 Heart failure, unspecified; Z20.822 Contact with and (suspected) exposure to COVID-19; R06.02 Shortness of breath; R94.31 Abnormal electrocardiogram [ECG] [EKG]

== ENCOUNTER 2022-09-13 14:38 | Emergency (ER) | payer MEDICARE ==
[2022-09-13] VITALS (16 sets, daily range): BP systolic 101–172; BP diastolic 60–111
[~2022-09-13] VITALS: Ht 160 cm; Wt 80.9 kg
[~2022-09-13 14:38] MED LIST changes: +REMERON7.5 MG PO; +TRAMADOL HYDROC50 M1 PO; +VOLTAREN1%GEL TOP; +ZYRTEC10 MG PO
[2022-09-13 16:33] LABS: BASO% 0.2 % (0-3); EOS% 0.1 % (0-8); HEMATOCRIT 27.5 % (37.0-47.0); IMMATURE GRANULOCYTES 0.3 % (0.0-5.0); MEAN CELL VOLUME 92.3 fL CALC (80.0-100.0); MEAN CORPUSCULAR HGB 30.2 pG CALC (26.0-32.0); MEAN CORPUSCULAR HGB CONC 32.7 g/dL CAL (32.0-36.0); MONO% 9.3 % (2-13); NEUT# 8.1 thou/uL (2.00-7.15); NEUT% 80.1 % (42-76); RED BLOOD COUNT 2.98 mill/uL (4.20-5.60); RED CELL DISTRI WIDTH 13.9 % (11.5-15.5)
[2022-09-13 16:44] LABS: ALBUMIN 3.9 g/dL (3.2-5.0); ALKALINE PHOSPHATASE 52 u/l (38-126); ANION GAP 13 (6-22 (CALC)); BILIRUBIN, TOTAL 0.3 mg/dL (0.02-1.3); BUN/CREATININE RATIO 41 (12-20 (CALC)); CARBON DIOXIDE 24 mmol/l (22-30); CHLORIDE 100 mmol/l (95-108); CREATININE 1.1 mg/dL (0.5-1.0); GFR FOR AFR.AMER. 57 ML/MIN (>=60 (CALC)); GFR OTHER RACES 47 ML/MIN (>=60 (CALC)); POTASSIUM 4.7 mmol/l (3.5-5.1); SGOT/AST 25 u/l (9-36); SODIUM 132 mmol/l (137-146); TOTAL PROTEIN 6.6 g/dL (6.3-8.2)
[2022-09-13 16:45] LABS: BUN 45 mg/dL (8-23)
[2022-09-13 16:54] LABS: D-DIMER 1.05 mg/L (0.19-0.60)
[2022-09-13 16:58] LABS: INTERNATIONAL NORMALIZED RATIO 1.1 RATIO (0.7-1.3); PROTHROMBIN TIME 10.8 SECONDS (9.0-12.5)
[2022-09-13 17:54] LABS: URINE BILIRUBIN - DIPSTICK NEGATIVE (NEGATIVE); URINE COLOR YELLOW; URINE GLUCOSE - DIPSTICK NEGATIVE (NEGATIVE); URINE KETONE Negative (NEGATIVE); URINE PH 5.5 (4.5-8.0); URINE PROTEIN - DIPSTICK NEGATIVE (NEG-TRACE)
[2022-09-13 17:55] LABS: URINE BLOOD DIPSTICK NEGATIVE (NEGATIVE); URINE LEUK ESTERASE NEGATIVE (NEGATIVE); URINE NITRITE - DIPSTICK NEGATIVE (Negative); URINE UROBILINOGEN - DIPSTICK 0.2 E.U./dL (0.2)
== END 2022-09-13 19:38 | disposition short-term general hospital (02) ==
LOC: ED 14:38
PROVIDERS: Nurse Practitioner
DX: K92.2 Gastrointestinal hemorrhage, unspecified (principal); R79.89 Other specified abnormal findings of blood chemistry; I11.0 Hypertensive heart disease with heart failure; I50.9 Heart failure, unspecified; R06.02 Shortness of breath
CPT/HCPCS: Q9967; S0164

== ENCOUNTER 2022-10-04 09:21 | Emergency (ER) | payer MEDICARE ==
[2022-10-04] VITALS (15 sets, daily range): BP systolic 111–133; BP diastolic 60–68
[~2022-10-04] VITALS: Ht 160 cm; Wt 79.1 kg
[2022-10-04 09:59] LABS: BASO% 0.4 % (0-3); EOS% 1.4 % (0-8); IMMATURE GRANULOCYTES 0.2 % (0.0-5.0); LYMPH% 13.3 % (15-41); MEAN CELL VOLUME 93.1 fL CALC (80.0-100.0); MEAN CORPUSCULAR HGB 29.1 pG CALC (26.0-32.0); MEAN CORPUSCULAR HGB CONC 31.3 g/dL CAL (32.0-36.0); MONO% 9.9 % (2-13); NEUT# 6.86 thou/uL (2.00-7.15); NEUT% 74.8 % (42-76); RED BLOOD COUNT 3.78 mill/uL (4.20-5.60); RED CELL DISTRI WIDTH 14.2 % (11.5-15.5)
[2022-10-04 10:02] LABS: HEMATOCRIT 35.2 % (37.0-47.0)
[2022-10-04 10:18] LABS: CHLORIDE 99 mmol/l (95-108); GFR FOR AFR.AMER. > 60 ML/MIN (>=60 (CALC)); GFR OTHER RACES 53 ML/MIN (>=60 (CALC)); POTASSIUM 4.6 mmol/l (3.5-5.1); SGOT/AST 21 u/l (9-36); SODIUM 128 mmol/l (137-146); TOTAL PROTEIN 6.1 g/dL (6.3-8.2)
[2022-10-04 10:32] LABS: ALBUMIN 3.1 g/dL (3.2-5.0); ALKALINE PHOSPHATASE 85 u/l (38-126); ANION GAP 17 (6-22 (CALC)); BILIRUBIN, TOTAL 0.6 mg/dL (0.02-1.3); BUN 18 mg/dL (8-23); BUN/CREATININE RATIO 18 (12-20 (CALC)); CARBON DIOXIDE 17 mmol/l (22-30)
== END 2022-10-04 14:08 | disposition home or self-care (01) ==
LOC: ED 09:21
PROVIDERS: Family Medicine
DX: I48.92 Unspecified atrial flutter (principal); I11.0 Hypertensive heart disease with heart failure; I50.9 Heart failure, unspecified; I48.91 Unspecified atrial fibrillation